=== PATIENT | male | born 1975 | race Caucasian/White ===

== ENCOUNTER → 2018-02-23 | Outpatient (CLI) | payer OTHER ==
--- NOTE | 2018-02-24 09:09 | US ---
EXAMINATION TYPE: US st tissue neck DATE OF EXAM: 02/23/2018 COMPARISON: NONE CLINICAL HISTORY: 43-year-old male R22.1 Neck Mass. Patient states lump back of neck for several year s, is not painful and has not changed since patient first noticed. TECHNIQUE: Targeted sonographic examination along the posterior neck at the site of palpable abnormal ity. FINDINGS: Rubber Turner notes: Scanned directly over patient's area of concern at back of neck. There is a 1.0 x 0.9 x 1.3 cm hypoechoic lesion with enhancement. There is no vascularity to this lesion. IMPRESSION: Circumscribed 1.3 cm lesion centered in the subcutaneous fat but partially involving the deep skin [place] val[place]. There is posterior through transmission suggesting a cystic lesion and the partial skin involvem ent raises possibility of an epidermal inclusion cyst or sebaceous cyst. Excision could be considered if symptomatic.
== END | disposition home or self-care (01) ==
LOC: RADUSWWP 16:41
PROVIDERS: ATTEND Family Medicine
DX: R22.1 Localized swelling, mass and lump, neck (principal)
CPT/HCPCS: 76536

== ENCOUNTER → 2018-04-14 | Outpatient (CLI) | payer OTHER ==
[2018-04-14 10:25] LABS: Basophils # (A) 0.1 k/uL (0-0.2); Basophils % (A) 1 %; Eosinophils # (A) 0.4 k/uL (0-0.7); Eosinophils % (A) 5 %; HCT 45.1 % (39.0-53.0); Lymphocytes # (A) 1.6 k/uL (1.0-4.8); Lymphocytes % (A) 20 %; MCH 30.5 pg (25.0-35.0); MCHC 35.5 g/dL (31.0-37.0); MCV 85.8 fL (80.0-100.0); Mean Platelet Volume 6.4; Monocytes # (A) 0.5 k/uL (0-1.0); Monocytes % (A) 6 %; Neutrophils # (A) 5.1 k/uL (1.3-7.7); Neutrophils % (A) 67 %; Platelet Count 325 k/uL (150-450); RBC 5.26 m/uL (4.30-5.90); RDW 13.4 % (11.5-15.5); WBC 7.7 k/uL (3.8-10.6)
[2018-04-14 10:35] LABS: ALT 104 U/L (21-72); AST 44 U/L (17-59); Blood Urea Nitrogen 13 mg/dL (9-20); Cholesterol 114 mg/dL (<200); Glucose 104 mg/dL (74-99); HDL Cholesterol 31 mg/dL (40-60); LDH 419 U/L (313-618); LDL Cholesterol,Calculated 28 mg/dL (0-99); Triglycerides 274 mg/dL (<150)
--- NOTE | 2018-04-14 11:57 | XR ---
EXAMINATION TYPE: XR chest 2V DATE OF EXAM: 04/14/2018 COMPARISON: NONE INDICATION: Psoriasis Vulgaris TECHNIQUE: Frontal and lateral views of the chest are obtained. FINDINGS: The heart size is normal. The pulmonary vasculature is normal. The lungs are clear. No suspicious changes of fibrosis is evident. No pleural effusions are evident. IMPRESSION: 1. No acute pulmonary process.
[2018-04-14 17:07] LABS: Hepatitis A Antibody IgM Non-Reactive (Non-Reactive); Hepatitis B Core IgM Non-Reactive (Non-Reactive)
== END | disposition home or self-care (01) ==
LOC: LABWHC1 09:47
PROVIDERS: ATTEND Dermatology
DX: L40.0 Psoriasis vulgaris (principal)
CPT/HCPCS: 36415; 71046; 80061; 80074; 82565; 82947; 83615; 84450; 84460; 84520; 85025; 86480

== ENCOUNTER → 2018-11-30 | Outpatient (CLI) | payer OTHER ==
--- NOTE | 2018-11-30 14:21 | US ---
EXAMINATION TYPE: US abdomen limited DATE OF EXAM: 11/30/2018 COMPARISON: CT 2016 CLINICAL HISTORY: R94.5 abnormal liver function. Elevated liver enzymes EXAM MEASUREMENTS: Liver Length: 16.2 cm Gallbladder Wall: 0.2 cm CBD: 0.4 cm Right Kidney: 10.5 x 6.2 x 5.3 cm Pancreas: obscured by overlying midline bowel gas Liver: heterogeneous, increased echogenicity, attenuating Gallbladder: wnl Evidence for sonographic Huntley's sign: no CBD: visualized portions wnl, limited by overlying bowel gas Right Kidney: wnl IMPRESSION: 1. Normal abdomen ultrasound
== END | disposition home or self-care (01) ==
LOC: RADUSWWP 07:40
PROVIDERS: ATTEND Family Medicine
DX: R94.5 Abnormal results of liver function studies (principal)
CPT/HCPCS: 76705